=== PATIENT | female | born 1970 | race Two or more races ===

== ENCOUNTER 2024-11-28 09:50 | Emergency (ER) | payer OTHER ==
[~2024-11-28] VITALS: Ht 152.4 cm; Wt 63.5 kg
[2024-11-28] MEDS ORDERED: METOPROLOL SUCC25 MG PO (10:03)
[2024-11-28] MEDS ORDERED: LISINOPRIL10 MG (10:03)
[2024-11-28 11:02] LABS: HEMATOCRIT 38.7 % (36.0-45.00); MEAN CELL VOLUME 93.5 fL (80.00-100.00); MEAN CORPUSCULAR HEMOGLOBIN 31.4 pg (27.00-32.0); MEAN CORPUSCULAR HGB CONC 33.6 g/dl (32.0-36.0); PLATELET COUNT 371 K/uL (150-450); RED BLOOD COUNT 4.14 M/uL (4.00-6.00)
== END 2024-11-28 12:32 | disposition home or self-care (01) ==
LOC: ER 09:53
PROVIDERS: General Practice
DX: R53.81 Other malaise (principal); R05.9 Cough, unspecified; Z20.822 Contact with and (suspected) exposure to COVID-19; Z88.6 Allergy status to analgesic agent